=== PATIENT | female | born 1930 | race Two or more races ===

== ENCOUNTER 2021-03-06 14:48 | Emergency (ER) | payer OTHER, MEDICAID ==
[~2021-03-06] VITALS: Ht 165.1 cm; Wt 64.4 kg
--- NOTE | 2021-03-06 15:00 | NUR ---
ER BED 4, BIB PA FOR EVAL S/P FALL FROM WC, C/O BRUISED LOWER LIP AND BRUISED KNEE
--- NOTE | 2021-03-06 15:20 | NUR ---
SEEN BY DR VILLATORO, LAB DRAWN BY LAB, WAITING FOR STUMP BLOWER
[2021-03-06 15:26] LABS: BASOPHILS # (AUTO) 0.1 K/uL (0.0-0.2); BASOPHILS % (AUTO) 0.8 % (0.0-2.0); EOSINOPHILS % (AUTO) 1.5 % (0.0-6.0); HEMATOCRIT 29 % (33-45); HEMOGLOBIN 9.5 g/dL (11.5-14.8); LYMPHOCYTES # (AUTO) 0.7 K/uL (0.8-4.8); LYMPHOCYTES % (AUTO) 9.1 % (20.0-44.0); MEAN CORPUSCULAR HGB CONC 32 g/dl (31.0-36.0); MEAN CORPUSCULAR VOLUME 97 fL (82-100); MONOCYTES # (AUTO) 0.4 K/uL (0.1-1.30); NEUTROPHILS # (AUTO) 5.9 K/uL (1.8-8.9); NEUTROPHILS % (AUTO) 82.6 % (43.0-81.0); PLATELET COUNT (AUTO) 278 K/uL (150-450); RED BLOOD CELL COUNT(AUTO) 3.02 MIL/uL (4.0-5.2); WHITE BLOOD COUNT (AUTO) 7.1 K/uL (4.3-11.0)
--- NOTE | 2021-03-06 15:48 | NUR ---
PT JUST CAME BACK FROM [place]
[2021-03-06] MEDS ORDERED: MAGN400O6 PO (16:07)
[2021-03-06] MEDS ORDERED: CRAN3875 PO (16:07)
[2021-03-06] MEDS ORDERED: LOSA25TA27 PO (16:07)
[2021-03-06] MEDS ORDERED: PANT20TA2 PO (16:07)
[2021-03-06] MEDS ORDERED: ACET-2605 PO ×2 (16:07)
[2021-03-06] MEDS ORDERED: MELA5TAB PO (16:07)
[2021-03-06] MEDS ORDERED: ACET-868 PO (16:07)
[2021-03-06] MEDS ORDERED: AMLO5TAB4 PO (16:07)
[2021-03-06] MEDS ORDERED: DOCU-141 PO (16:07)
[2021-03-06] MEDS ORDERED: CRAN425C6 PO (16:07)
[2021-03-06] MEDS ORDERED: ASCO-352 PO (16:07)
[2021-03-06] MEDS ORDERED: ATOR10TA PO (16:07)
[2021-03-06] MEDS ORDERED: ASPI-1169 PO (16:07)
[2021-03-06] MEDS ORDERED: CHOL100062 PO (16:07)
[2021-03-06] MEDS ORDERED: MULT-447 PO (16:07)
[2021-03-06] MEDS ORDERED: ALBU8.5H8 IH (16:07)
[2021-03-06] MEDS ORDERED: FERR325T23 PO (16:07)
[2021-03-06] MEDS ORDERED: AMIN30LI2 PO (16:07)
[2021-03-06] MEDS ORDERED: FLUT1BLS14 INH (16:07)
[2021-03-06] MEDS ORDERED: CLOP75TA15 PO (16:07)
[2021-03-06] MEDS ORDERED: MAGN400T26 PO (16:07)
[2021-03-06] MEDS ORDERED: CYAN-51 PO (16:07)
[2021-03-06 16:14] LABS: CALCIUM, SERUM 9.1 mg/dL (8.5-10.1); CREATININE 1.1 mg/dL (0.6-1.3); POTASSIUM 4.2 mmol/L (3.5-5.1)
[2021-03-06 18:01] VITALS: BP 113/60
--- NOTE | 2021-03-06 18:09 | NUR ---
PT ASLEEP, NO SIGNS OF DISTRESS
--- NOTE | 2021-03-06 18:21 | NUR ---
[facility] ETA 1830.
--- NOTE | 2021-03-06 18:24 | NUR ---
SPOKE TO [facility] OF [facility] TO GIVE REPORT AND INFORM THAT PT IS COMING BACK
[2021-03-06] MEDS ORDERED: ACETAMINOPHEN 325 MG TABLET ONE (18:28)
[2021-03-06] MEDS ORDERED: ACETAMINOPHEN 325 MG TABLET PO ONE (18:30)
--- NOTE | 2021-03-06 18:37 | NUR ---
REPORT GIVEN TO ESTELLE CROSS AT [facility]
--- NOTE | 2021-03-06 18:45 | NUR ---
REPORT GIVEN TO [facility]UL[facility] TRANSPORT
== END 2021-03-06 18:44 ==
LOC: ER 15:25
DX: S06.0X0A Concussion without loss of consciousness, initial encounter (principal); S80.01XA Contusion of right knee, initial encounter; R51.9 Headache, unspecified; J44.9 Chronic obstructive pulmonary disease, unspecified; I25.10 Atherosclerotic heart disease of native coronary artery without angina pectoris; E03.9 Hypothyroidism, unspecified; K21.9 Gastro-esophageal reflux disease without esophagitis; F03.90 Unspecified dementia, unspecified severity, without behavioral disturbance, psychotic disturbance, mood disturbance, and anxiety; I11.0 Hypertensive heart disease with heart failure; I50.9 Heart failure, unspecified; Z86.73 Personal history of transient ischemic attack (TIA), and cerebral infarction without residual deficits; Z88.5 Allergy status to narcotic agent; Z88.6 Allergy status to analgesic agent; Z79.82 Long term (current) use of aspirin; Z79.899 Other long term (current) drug therapy; W18.39XA Other fall on same level, initial encounter; Y93.89 Activity, other specified; Y92.89 Other specified places as the place of occurrence of the external cause; Y99.8 Other external cause status
CPT/HCPCS: 36415; 70450-TC; 71045-TC; 72125-TC; 73564-TC; 80048-TC; 85025-TC; 85730-TC

== ENCOUNTER 2021-09-07 13:28 | Emergency (ER) | payer OTHER ==
[~2021-09-07] VITALS: Ht 165.1 cm; Wt 64.4 kg
[~2021-09-07 13:28] MED LIST: ACET-2605 PO; ACET-868 PO; ALBU8.5H8 IH; AMIN30LI2 PO; AMLO5TAB4 PO; ASCO-352 PO; ASPI-1169 PO; ATOR10TA PO; CHOL100062 PO; CLOP75TA15 PO; CRAN3875 PO; CRAN425C6 PO; CYAN-51 PO; DOCU-141 PO; FERR325T23 PO; FLUT1BLS14 INH; LOSA25TA27 PO; MAGN400O6 PO; MAGN400T26 PO; MELA5TAB PO; MULT-447 PO; PANT20TA2 PO
[2021-09-07 13:35] VITALS: BP 128/77
== END 2021-09-07 15:00 | disposition home or self-care (01) ==
LOC: ER 13:31
DX: S62.396A Other fracture of fifth metacarpal bone, right hand, initial encounter for closed fracture (principal); S60.221A Contusion of right hand, initial encounter; I13.0 Hypertensive heart and chronic kidney disease with heart failure and stage 1 through stage 4 chronic kidney disease, or unspecified chronic kidney disease; E11.22 Type 2 diabetes mellitus with diabetic chronic kidney disease; N18.9 Chronic kidney disease, unspecified; I50.9 Heart failure, unspecified; E78.5 Hyperlipidemia, unspecified; I25.10 Atherosclerotic heart disease of native coronary artery without angina pectoris; J44.9 Chronic obstructive pulmonary disease, unspecified; F03.90 Unspecified dementia, unspecified severity, without behavioral disturbance, psychotic disturbance, mood disturbance, and anxiety; K21.9 Gastro-esophageal reflux disease without esophagitis; Z86.73 Personal history of transient ischemic attack (TIA), and cerebral infarction without residual deficits; Z88.8 Allergy status to other drugs, medicaments and biological substances; Z88.6 Allergy status to analgesic agent; Z79.899 Other long term (current) drug therapy; Z79.82 Long term (current) use of aspirin; X58.XXXA Exposure to other specified factors, initial encounter; Y93.89 Activity, other specified; Y92.89 Other specified places as the place of occurrence of the external cause; Y99.8 Other external cause status